=== PATIENT | male | born 1950 | race Asian ===

== ENCOUNTER 2024-05-13 13:20 | Outpatient (RCR) | payer MEDICARE, MEDICAID, SELFPAY ==
--- NOTE | 2024-05-13 13:42 | PTNOTE_ITS ---
PT OP Initial Eval Patient Information Outpatient Physical Therapy Treatment Date: 05/13/24 Visit Reasons: Cerebrovascular accident Medical Diagnosis: I63.89 Treatment Dx #1: Balance impairement Treatment Dx #2: Dec L shoulder ROM Start of Care: 05/13/24 Date of Onset: 01/2024 Smoking Status Smoking Status: Never smoker Initial Assessment Subjective: Pt is 73 yr old male s/p CVA in January with c/o L shoulder weakness, pain and decreased ROM. He has difficulty reaching OH and fully supinating the L hand since the CVA. PLOF: pt had full use of the L shoulder with ADL's and reaching. He also reports dizziness and loss of balance that affects mobility. PMH: CVA, triple bypass 2018, HTN, DM Pt goal: to reach up higher and walk with better balance Objective: L shoulder ArOM: FF: 100 deg ABD: 90 deg ER: 75 deg HBB: to L glute with pain Strength: 4-/5 in all planes SLS: 1-2 seconds Tandem stance: 3 seconds Assessment: Pt presents with decreased L shoulder ROM and strength s/p CVA. And he has poor single leg balance and balance in tandem stance. Pt requires skilled therapy to meet goals and he has fair/good rehab potential. Short Term and Care Home Goals 1. Ind with HEP 2. Improved AROM into all planes to at least 120 deg FF and abduction and ER to 90 deg 3. Pt will reach OH and behind back with <=3/10 R shoulder pain 4. Improved tandem stance balance to at least 10 seconds Treatment Plan 90 day POC ? 1. Manual therapy ? 2. Therex ? 3. Modalities as indicated, moist heat, ice, estim ? Frequency and Duration: 2x a week for 16 visits Certification Dates: 05/13/24 to 08/09/24 Procedure Charges OP PT Eval Mod Complex 30 minutes: Yes
== END 2024-05-14 23:59 | disposition home or self-care (01) ==
LOC: CPTX 13:20
PROVIDERS: PCP Family Medicine; Referring Provider Family Medicine; Visit Provider Family Medicine
DX: I69.354 Hemiplegia and hemiparesis following cerebral infarction affecting left non-dominant side (principal); M25.512 Pain in left shoulder; R26.89 Other abnormalities of gait and mobility; R42 Dizziness and giddiness
CPT/HCPCS: 97162

== ENCOUNTER 2024-05-22 18:44 | Emergency (ER) | payer MEDICARE, MEDICAID, SELFPAY ==
[2024-05-22] VITALS (7 sets, daily range): BP systolic 117–181; BP diastolic 66–99; PULSE 58–81; RESP 18–24; TEMP 36.7–37; O2SAT 95–97; BMI 27.3
--- NOTE | 2024-05-22 18:50 | EKG_ITS ---
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1950 Requested By: Nik Brown Order Number: [id number] Reading MD: Nik Brown Measurements Intervals [place] Rate: 71 P: 27 MN: 112 QRS: -47 QRSD: 157 T: 17 QT: 426 QTc: 465 Interpretive Statements SINUS RHYTHM WITH SHORT MN INTERVAL RIGHT BUNDLE BRANCH BLOCK [120+ ms QRS DURATION, UPRIGHT V1, 40+ ms S IN I/aVL/V4/V5/V6] LEFT ANTERIOR FASCICULAR BLOCK [QRS AXIS <= -45, QR IN I, RS IN II] Compared to ECG 01/30/2024 12:26:28 Short MN interval now present Left anterior fascicular block now present Sinus bradycardia no longer present Left-axis deviation no longer present /store/S0/[id number]/ecg/[id number].pdf
--- NOTE | 2024-05-22 19:57 | PD.EDADULT ---
ED General RME/HPI General Chief complaint: General Adult/Misc Complain Stated complaint: HYPERTENSION Time Seen by Provider: 05/22/24 19:55 Arrival date/time: 05/22/24 18:44 RME / HPI RME / HPI narrative: 73-year-old male patient came in for evaluation regarding elevated blood pressure. At home patient's blood pressure was noted to be above 200 systolic. Also complained of posterior neck pain. Denies any chest pain denies any shortness of breath denies any other complaints patient is taking Coreg and [place] chlorothiazide daily. Related Data Home Medications ?Medication ?Instructions ?Recorded ?Confirmed metformin 850 mg tablet 850 mg PO BID 06/17/17 07/07/20 esomeprazole magnesium 20 mg 40 mg PO QDAY 06/18/17 07/07/20 capsule,delayed release (Nexium) atorvastatin 20 mg tablet 20 mg PO QDAY 06/21/20 07/07/20 carvedilol 3.125 mg tablet 3.125 mg PO BID 06/21/20 07/07/20 loratadine 10 mg tablet 10 mg PO QDAY 06/21/20 07/07/20 tamsulosin 0.4 mg capsule 0.4 mg PO QDAY 06/21/20 07/07/20 losartan 25 mg tablet 25 mg PO QDAY 07/07/20 07/07/20 Previous Rx's ?Medication ?Instructions ?Recorded clopidogrel 75 mg tablet (Plavix) 75 mg PO QDAY #30 tabs 06/18/17 hydrochlorothiazide 12.5 mg tablet 12.5 mg PO QAM #30 tabs 07/24/23 meclizine 25 mg tablet 25 mg PO BID PRN dizziness #10 tabs 01/25/24 scopolamine base 1 mg over 3 days 1 mg topical .72 hours PRN 01/25/24 transdermal patch (Transderm-Scop) dizziness #10 ea hydralazine 25 mg tablet 25 mg PO TID PRN htn #30 tabs 05/22/24 Allergies Allergy/AdvReac Type Severity Reaction Status Date / Time No Known Allergies Allergy Verified 05/22/24 18:47 Review of Systems Review of Systems Narrative Review of Systems: Review of system reviewed and within normal limits except mentioned in HPI ED Exam Narrative Physical exam: VITAL SIGNS: Reviewed. GENERAL APPEARANCE: Alert and interactive, follows commands, no acute distress, HEAD AND FACE: Non-traumatic. ENT: PERRL, pink conjunctivitis, eyelid no trauma, Mucous membrane moist. NECK: Supple, nontender, no nuchal rigidity. CHEST: No tenderness, no crepitus, no paradoxical movement, no retractions. LUNGS: Clear, well ventilated, symmetric, no rales, no wheezing, no ronchi, no stridor, good breath sounds bilaterally. HEART: Regular rate, regular rhythm, no murmur, no gallops. ABDOMEN: Soft, positive bowel sounds, nondistended, no guarding, nontender, no rebound, no masses, RECTAL: Deferred. GENITAL: Deferred. NEUROLOGICAL: Gross motor function intact sensory function intact, Appropriate for age. MUSCULOSKELETAL: low back nontender, full range of motion. EXTREMITIES: Nontender, full range of motion. SKIN: Color pink, dry, no rash, no lacerations, no abrasions, no contusions. LYMPHATICS: Deferred. Course Quality Measures none Orders Category Date Time Status EKG (ED ONLY) *Do not use* NOW Care 05/22/24 18:50 Completed EKG (ED Only) Stat Exams 05/22/24 18:50 Draft CBC [CBC] Stat Lab 05/22/24 20:45 Completed CMP [Comprehensive Metabolic Panel] Stat Lab 05/22/24 20:45 Completed Troponin I Stat Lab 05/22/24 20:45 Completed NIFEdipine [Procardia] Med 05/22/24 19:55 Discontinued 20 mg PO X1 ONE cloNIDine HCL [Catapres] Med 05/22/24 19:59 Discontinued 0.2 mg PO X1 ONE Vital Signs Vital signs: Vital Signs Temperature 98.6 F 05/22/24 19:42 Pulse Rate 78 05/22/24 19:42 Respiratory Rate 18 05/22/24 19:42 Blood Pressure 181/99 H 05/22/24 19:42 Pulse Oximetry (%) 97 05/22/24 19:42 Oxygen Delivery Method Room Air 05/22/24 19:42 [facility] Patient data External records reviewed:: None Clinical information provided by:: none Social determinants that could affect healthcare access:: none Patient has the following chronic illnesses:: Hypertension How is presenting disease/condition affected by chronic disease/condition?: exacerbated by Evaluation data The following diagnostics were reviewed and interpreted by me:: lab results and EKG tracing(s) Lab and/or radiology exams considered but not ordered:: None Interpretation Summary: See results in MDM Medications Medications considered but not ordered:: None Medication administrations:: Medication Administration History Discontinued Medications Clonidine (Clonidine Hcl 0.1 Mg Tablet) 0.2 mg PO X1 ONE Stop: 05/22/24 20:00 Last Admin: 05/22/24 20:03 Dose: 0.2 mg Documented By: Nifedipine (Nifedipine 10 Mg Capsule) 20 mg PO X1 ONE Stop: 05/22/24 19:56 Last Admin: 05/22/24 20:05 Dose: Not Given Documented By: Non-Admin Reason: Cancelled by Provider Clonidine Consultations Consultation(s) initiated? (list below): No Diagnosis Differential Diagnosis ED Complaint MDM: Hypertension hypertensive urgency Most likely diagnosis given after review of the tests above:: Hypertensive urgency Admission Indicated Admission indicated?: not indicated Explain why admission is indicated or not indicated:: Stable Admission Request Was there a request for admission?: No Disposition Plan Disposition Plan: Discharge Discharge Attestation Discharge Attestation: The patient was given an opportunity to ask questions and understood the discharge instructions. Discharge instructions specifically effects, indications for sooner follow up or return to the emergency department, and the expected course of current diagnosis. Patient condition: Stable Medical Decision Making MDM Narrative MDM Narrative: 73-year-old male patient came in for evaluation regarding elevated blood pressure. At home patient's blood pressure was noted to be above 200 systolic. Also complained of posterior neck pain. Denies any chest pain denies any shortness of breath denies any other complaints patient is taking Coreg and [place] chlorothiazide daily. Patient received clonidine 0.2 mg p.o. x 1 EKG showed normal sinus rhythm, ventricular rate of 71 bpm, no ST segment elevation depression noted. Laboratory workup including troponin all came back normal. Prior to discharge patient blood pressure was noted to be 122/66 and patient is denying any complaints Patient appears nontoxic and hemodynamically stable. Patient discharged home and instructed to follow-up with primary care provider in 24 to 48 hours. Instructed to return to the emergency department immediately if worsening of symptoms Differential Diagnosis Differential Diagnosis: Hypertension hypertensive urgency Lab Data 05/22/24 20:45 05/22/24 20:45 Labs: Lab Results 05/22/24 Range/Units 20:45 WBC 7.3 (3.8-10.6) Thou/mm3 RBC 4.90 (4.50-5.90) Miln/mm3 Hgb 13.1 L (13.5-16.0) g/dL Hct 38.4 L (41.0-53.0) % MCV 78 L (80-100) fL MCH 26.7 (25.0-35.0) pg MCHC 34.1 (31.0-37.0) g/dl RDW Std Deviation 37.9 (35.1-43.9) fL Plt Count 228 (140-440) Thou/mm3 Neut % (Auto) 58 (37-80) % Lymph % (Auto) 29 (10-50) % [place] % (Auto) 8 (0-12) % Eos % (Auto) 3 (0-10) % Baso % (Auto) 1 (0-2.5) % Neut # (Auto) 4.3 (1.8-7.7) Thou/mm3 Lymph # (Auto) 2.2 (1.0-4.8) Thou/mm3 [place] # (Auto) 0.6 (0.0-0.8) Thou/mm3 Eos # (Auto) 0.2 (0.0-0.5) Thou/mm3 Baso # (Auto) 0.1 (0.0-0.2) Thou/mm3 Immature Gran # (Auto) 0.03 H (0.00-0.00) Thou/mm3 Absolute Nucleated RBC 0.00 (0.00-0.00) Thou/mm3 Immature Gran % 0 (0-0) % Nucleated RBC % 0 (0) /100 WBC Sodium 138 (136-145) mMol/L Potassium 4.3 (3.4-5.1) mMol/L Chloride 104 (98-107) mMol/L Carbon Dioxide 26.1 (20.0-31.0) mMol/L Anion Gap 8 (7-16) BUN 16 (9-23) mg/dL Creatinine 1.1 (0.6-1.3) mg/dL Estim Creat Clear Calc 62.2 (>60) mL/min eGFR > 60 (60 - ) See Note BUN/Creatinine Ratio 15 (12-20) Ratio Glucose 108 H (74-106) mg/dL Calculated Osmolality 277 (275-295) Calcium 10.5 (8.3-10.6) mg/dL Corrected Calcium 10.5 H (8.5-10.1) mg/dL Total Bilirubin 0.6 (0.3-1.2) mg/dL AST 21 (0-34) U/L ALT 19 (10-49) U/L Alkaline Phosphatase 62 (46-116) U/L Troponin I < 0.020 (0.0-0.045) ng/mL Total Protein 7.7 (5.7-8.2) gm/dL Albumin 4.6 (3.4-4.8) gm/dL Globulin 3.1 (2.3-3.5) gm/dL Albumin/Globulin Ratio 1.5 (1.2-2.2) Discharge Plan Plan Patient Disposition: HOME (Self Care) Disposition Comment: Stable Prescriptions/Referrals Prescriptions/Med Rec: New hydralazine 25 mg tablet 25 mg PO TID PRN (Reason: htn) Qty: 30 0RF Rx Instructions: For systolic above 160 For diastolic above 110 No Action metformin 850 mg Tablet 850 mg PO BID clopidogrel [Plavix] 75 mg Tablet 75 mg PO QDAY Qty: 30 0RF esomeprazole magnesium [Nexium] 20 mg Capsule,Delayed Release(Dr/Ec) 40 mg PO QDAY atorvastatin 20 mg Tablet 20 mg PO QDAY carvedilol 3.125 mg Tablet 3.125 mg PO BID tamsulosin 0.4 mg Capsule 0.4 mg PO QDAY loratadine 10 mg Tablet 10 mg PO QDAY losartan 25 mg Tablet 25 mg PO QDAY hydrochlorothiazide 12.5 mg tablet 12.5 mg PO QAM Qty: 30 0RF meclizine 25 mg tablet 25 mg PO BID PRN (Reason: dizziness) Qty: 10 0RF scopolamine base [Transderm-Scop] 1 mg over 3 days patch 3 day 1 mg topical .72 hours PRN (Reason: dizziness) Qty: 10 0RF Referrals: Art Woody MD [Primary Care Provider] - In 1 week Problem List Clinical Impression: Hypertension Patient/Caregiver Discharge Instructions Discharge Activity: activity as tolerated Education Materials: ED High Blood Pressure ... Additional Instructions: Thank you for the opportunity for serving you today. You are stable for discharged . You are advised to: Follow-up with your PCP in 1 to 2 days Return to ED for worsening of symptoms Increase oral fluids Take medication as prescribed Print Language: Turkish Stand Alone Forms: Maryellen Award Info., Patient Portal Info Letter PA/[employer] MAKER Supervising Physician PA/[employer] MAKER Supervising Physician: MD Joe
[2024-05-22] MEDS: cloNIDine HCL 0.1 MG TABLET 0.2 MG PO (20:03)
[2024-05-22 21:13] LABS: Basophils # (Auto) 0.1 Thou/mm3 (0.0-0.2); Basophils % (Auto) 1 % (0-2.5); Eosinophils # (Auto) 0.2 Thou/mm3 (0.0-0.5); Eosinophils % (Auto) 3 % (0-10); Hematocrit 38.4 % (41.0-53.0); Hemoglobin 13.1 g/dL (13.5-16.0); Immature Granulocytes % (Auto) 0 % (0-0); Immature Granulocytes Auto 0.03 Thou/mm3 (0.00-0.00); Lymphocytes # (Auto) 2.2 Thou/mm3 (1.0-4.8); Lymphocytes % (Auto) 29 % (10-50); Mean Corpuscular HGB Conc 34.1 g/dl (31.0-37.0); Mean Corpuscular Hemoglobin 26.7 pg (25.0-35.0); Mean Corpuscular Volume 78 fL (80-100); Monocytes # (Auto) 0.6 Thou/mm3 (0.0-0.8); Monocytes % (Auto) 8 % (0-12); Neutrophils # (Auto) 4.3 Thou/mm3 (1.8-7.7); Neutrophils % (Auto) 58 % (37-80); Nucleated Red Blood Cell % 0 /100 WBC (0); Platelet Count 228 Thou/mm3 (140-440); RDW Standard Deviation 37.9 fL (35.1-43.9); White Blood Count 7.3 Thou/mm3 (3.8-10.6)
[2024-05-22 21:28] LABS: Alanine Aminotransferase 19 U/L (10-49); Albumin, Serum 4.6 gm/dL (3.4-4.8); Albumin/Globulin Ratio 1.5 (1.2-2.2); Alkaline Phosphatase 62 U/L (46-116); Anion Gap 8 (7-16); Aspartate Amino Transferase 21 U/L (0-34); BUN/Creatinine Ratio 15 Ratio (12-20); Bilirubin,Total 0.6 mg/dL (0.3-1.2); Blood Urea Nitrogen 16 mg/dL (9-23); Calcium 10.5 mg/dL (8.3-10.6); Calcium (Corrected) 10.5 mg/dL (8.5-10.1); Carbon Dioxide 26.1 mMol/L (20.0-31.0); Chloride 104 mMol/L (98-107); Creatinine (Component) 1.1 mg/dL (0.6-1.3); Estimated Creatinine Clearance 62.2 mL/min (>60); Globulin 3.1 gm/dL (2.3-3.5); Glucose 108 mg/dL (74-106); Osmolality,Calculated 277 (275-295); Potassium 4.3 mMol/L (3.4-5.1); Sodium 138 mMol/L (136-145); Total Protein 7.7 gm/dL (5.7-8.2); Troponin I < 0.020 ng/mL (0.0-0.045); eGFR > 60 See Note
== END 2024-05-22 22:19 | disposition home or self-care (01) ==
PROVIDERS: Nurse Practitioner Family; Emergency Provider Emergency Medicine; PCP Family Medicine
DX: I10 Essential (primary) hypertension (principal)
CPT/HCPCS: 36415; 80053; 84484; 85025; 93005; 99283; A9270

== ENCOUNTER 2024-06-11 14:00 | Outpatient (RCR) | payer MEDICARE, MEDICAID, SELFPAY ==
--- NOTE | 2024-05-25 14:57 | PT.ODAYNRPT ---
PT Outpatient Daily Note OP Daily Note Outpatient Physical Therapy Treatment Date: 05/25/24 Visit Reasons: Cerebrovascular accident Subjective: Same as time of eval Objective: See F/S for therex Assessment: Some pain with AAROM into L shoulder abduction but improved AAROM today Plan: Continue per POC Length of Time (minutes) of Treatment: 30 Minutes Procedure Charges Therapeutic Exercise 30 minutes: Yes
--- NOTE | 2024-06-01 14:24 | PT.ODAYNRPT ---
PT Outpatient Daily Note OP Daily Note Outpatient Physical Therapy Treatment Date: 06/01/24 Visit Reasons: Cerebrovascular accident Subjective: The L shoulder isn't hurting much today Objective: See F/S for therex Assessment: Some pain with AAROM into L shoulder abduction but improved AAROM today Plan: Continue per POC Length of Time (minutes) of Treatment: 30 Minutes Procedure Charges Therapeutic Exercise 30 minutes: Yes
--- NOTE | 2024-06-04 15:07 | PT.ODAYNRPT ---
PT Outpatient Daily Note OP Daily Note Outpatient Physical Therapy Treatment Date: 06/04/24 Visit Reasons: Cerebrovascular accident Subjective: Pt reports noticing progress with shoulder mobility. Objective: Please see flow sheet for ther ex list. Assessment: Interventions completed with short rest breaks in between, pt shared he suffers from vertigo so he gets episodes of dizziness. Plan: Continue with POc. Length of Time (minutes) of Treatment: 30 Minutes Procedure Charges Therapeutic Exercise 30 minutes: Yes
--- NOTE | 2024-06-09 14:11 | PT.ODAYNRPT ---
PT Outpatient Daily Note OP Daily Note Outpatient Physical Therapy Treatment Date: 06/09/24 Visit Reasons: Cerebrovascular accident Subjective: The L shoulder isn't hurting much today Objective: See F/S for therex Assessment: Some pain with AAROM into L shoulder abduction but improved AAROM today Plan: Continue per POC Length of Time (minutes) of Treatment: 30 Minutes Procedure Charges Therapeutic Exercise 30 minutes: Yes
--- NOTE | 2024-06-11 14:40 | PT.ODAYNRPT ---
PT Outpatient Daily Note OP Daily Note Outpatient Physical Therapy Treatment Date: 06/11/24 Visit Reasons: Cerebrovascular accident Subjective: No new complaints. Objective: Please see flow sheet for ther ex list. Assessment: Pt demonstrates forward head with B UE ther ex, verbal cues and reminders to correct. Plan: Continue with POC. Length of Time (minutes) of Treatment: 30 Minutes Procedure Charges Therapeutic Exercise 30 minutes: Yes
== END 2024-06-11 23:59 | disposition home or self-care (01) ==
LOC: CPTX 14:00
PROVIDERS: PCP Family Medicine; Referring Provider Family Medicine; Visit Provider Family Medicine
DX: I69.354 Hemiplegia and hemiparesis following cerebral infarction affecting left non-dominant side (principal); M25.512 Pain in left shoulder; R26.89 Other abnormalities of gait and mobility; R42 Dizziness and giddiness
CPT/HCPCS: 97110

== ENCOUNTER → 2024-07-05 | Outpatient (CLI) | payer MEDICARE, MEDICAID, SELFPAY ==
--- NOTE | 2024-07-05 16:00 | XR_ITS ---
Examination: CT chest, without intravenous contrast. Sagittal and coronal 2-D reconstructions. Exam date and time: July 05, 2024 1604 hours INDICATIONS: T millimeter nodule right upper lobe on CT head and shows study February 09, 2024 CTDI:vol (mGy) 11 DLP: (mGycm) 396 Technique: Multiple 3.0 mm axial sections of the chest to been obtained. Bone and lung density settings are obtained. Sagittal and coronal 2-D reconstructions have been obtained. Low dose protocols were performed. One or more of the following dose reduction techniques were used; automated exposure control, adjustment of the mA and/or KV according to patient size, use of iterative reconstruction technique. Findings: AP dimension ascending thoracic aorta 3.9 cm Pulmonary artery segments are not enlarged No paratracheal tracheobronchial or bronchopulmonary adenopathy 9 mm pulmonary nodule right upper lobe axial image 23 No pneumonia or pulmonary edema No visualized liver or splenic lesion No pancreatic mass Kidneys partially visualized no hydronephrosis IMPRESSION: 9 mm pulmonary nodule right upper lobe, recommend continued 3-6 month follow-up CT chest without contrast
== END | disposition home or self-care (01) ==
PROVIDERS: PCP Family Medicine; Referring Provider Family Medicine; Visit Provider Family Medicine
DX: R91.1 Solitary pulmonary nodule (principal)
CPT/HCPCS: 71250

== ENCOUNTER 2024-07-12 10:30 | Outpatient (RCR) | payer MEDICARE, MEDICAID, SELFPAY ==
--- NOTE | 2024-06-17 11:59 | PT.ODS1RPT ---
PT OP Progress/Discharge Note Date of Service: 06/17/24 Progress Note/DC Note Progress Note/Discharge Note: Progress Note Patient Information Visit Reasons: Cerebrovascular accident Service Continue Service or Discharge: Continue Service Status Subjective: Improved L shoulder ROM since starting therapy but it still hurts to reach OH and limited with full supination of L wrist. Objective: L shoulder AROM: FF: 107 deg Abd: 95 deg ER: 80 deg Assessment: Pt has attended the eval and 6 Rx sessions with slow progress with ROM goals due to pain. Pt would benefit from continued therapy to meet goals. Plan: Continue with visits up to 16. Procedure Charges Therapeutic Exercise 30 minutes: Yes
--- NOTE | 2024-06-24 13:06 | PTNOTE_ITS ---
PT Outpatient Daily Note OP Daily Note Outpatient Physical Therapy Treatment Date: 06/24/24 Visit Reasons: Cerebrovascular accident Subjective: Pt reports shoulder pain continues to be present. Pt mentioned that he has not been to PT for a week but while he is off he does exercises at home, pt uses dumbbell weight for exercises. Pt shared that he notices a bumb on his arm near bicep and it is sore and painful. Pt has a follow up with MD on the first week of July. Pt Objective: Please see flow sheet for ther ex list. Assessment: Pt presents in clinic with improved ROm but continues to have pain. Pt recommended to avoid use of dumbbell weight at home for now due to new complaint of pain and soreness in bicep region. Plan: Continue with POC. Length of Time (minutes) of Treatment: 30 Minutes STRATEGIC PLANNING MANAGER Service Modifier Method I: Divide the number of min of care provided by the STRATEGIC PLANNING MANAGER/ROXANNE by the total min of care provided then multiply by 100. If greater than 11 percent modifier is required. Method II: Divide the total time of care provided to patient by 10 (round to the nearest whole number) and add 1 min. to set the minimum time requirement. If treatment total was 60 min., then 10% of 6 min PT CQ modifier applied: CQ Modifier applied Procedure Charges Therapeutic Exercise 30 minutes: Yes
--- NOTE | 2024-07-01 13:12 | PT.ODS1RPT ---
PT OP Progress/Discharge Note Date of Service: 07/01/24 Progress Note/DC Note Progress Note/Discharge Note: Progress Note Patient Information Visit Reasons: Cerebrovascular accident Service Continue Service or Discharge: Continue Service Status Subjective: Improved L shoulder ROM since starting therapy but it still hurts to reach OH and limited with full supination of L wrist. Objective: L shoulder AROM: FF: 107 deg Abd: 95 deg ER: 80 deg Assessment: Pt has attended the eval and 6 Rx sessions with slow progress with ROM goals due to pain. Pt would benefit from continued therapy to meet goals. Plan: Continue with visits up to 16.
--- NOTE | 2024-07-01 13:18 | PT.ODAYNRPT ---
PT Outpatient Daily Note OP Daily Note Outpatient Physical Therapy Treatment Date: 07/01/24 Visit Reasons: Cerebrovascular accident Subjective: The L shoulder isn't hurting much today Objective: See F/S for therex Assessment: Some pain with AAROM into L shoulder abduction but improved AAROM today Plan: Continue per POC Length of Time (minutes) of Treatment: 30 Minutes Procedure Charges Therapeutic Exercise 30 minutes: Yes
--- NOTE | 2024-07-12 11:38 | PT.ODAYNRPT ---
PT Outpatient Daily Note OP Daily Note Outpatient Physical Therapy Treatment Date: 07/12/24 Visit Reasons: Cerebrovascular accident Subjective: The L shoulder isn't hurting much today but it gets tired with exercise. Objective: See F/S for therex Assessment: Some pain with AAROM into L shoulder abduction but improved AAROM today into FF with 2 lb dumbbell in supine Plan: Continue per POC Length of Time (minutes) of Treatment: 30 Minutes Procedure Charges Therapeutic Exercise 30 minutes: Yes
== END 2024-07-12 23:59 | disposition home or self-care (01) ==
LOC: CPTX 10:30
PROVIDERS: PCP Family Medicine; Referring Provider Family Medicine; Visit Provider Family Medicine
DX: I69.354 Hemiplegia and hemiparesis following cerebral infarction affecting left non-dominant side (principal); R26.89 Other abnormalities of gait and mobility; R42 Dizziness and giddiness; I10 Essential (primary) hypertension; E11.9 Type 2 diabetes mellitus without complications
CPT/HCPCS: 97110

== ENCOUNTER 2024-08-04 11:30 | Outpatient (RCR) | payer MEDICARE, SELFPAY ==
--- NOTE | 2024-07-20 13:15 | PT.ODAYNRPT ---
PT Outpatient Daily Note OP Daily Note Outpatient Physical Therapy Treatment Date: 07/20/24 Visit Reasons: Cerebrovascular accident Subjective: Pt reports shoulder is clicking, popping, grinding and still has pain. Objective: Please see flow sheet for ther ex list. Assessment: Pt c/o pain and tightness on posterior shoulder, pt instructed on posterior capsule stretch verbal and tactile cues to perform with good technique. Plan: Continue with poC. Length of Time (minutes) of Treatment: 30 Minutes Procedure Charges Therapeutic Exercise 30 minutes: Yes
--- NOTE | 2024-07-27 13:15 | PT.ODAYNRPT ---
PT Outpatient Daily Note OP Daily Note Outpatient Physical Therapy Treatment Date: 07/27/24 Visit Reasons: Cerebrovascular accident Subjective: Pt reports he continues to be compliant with HEP, and stays pretty active. Pt c/o feeling clicking and popping near shoulder and shoulder blade. Objective: Please see flow sheet for ther ex list. Assessment: Progressing AAROM interventions per pt tolerance. Pt demonstrates poor endurance with strengthening interventions, requires frequent rest breaks in between reps. Plan: Continue with POC. Length of Time (minutes) of Treatment: 30 Minutes Procedure Charges Therapeutic Exercise 30 minutes: Yes
--- NOTE | 2024-08-04 13:12 | PT.ODAYNRPT ---
PT Outpatient Daily Note OP Daily Note Outpatient Physical Therapy Treatment Date: 08/04/24 Visit Reasons: Cerebrovascular accident Subjective: Pt reports he continues to perform HEP. Objective: Please see flow sheet for ther ex list. Assessment: Pt ROM slowly progressing. Pt educated on updated HEP adding horizontal abduction exercise and shoulder extension AAROM. Plan: Continue with POC. Length of Time (minutes) of Treatment: 30 Minutes HEAT TREAT TECHNICIAN Service Modifier Method I: Divide the number of min of care provided by the HEAT TREAT TECHNICIAN/CLAY PIGEON SETTER by the total min of care provided then multiply by 100. If greater than 11 percent modifier is required. Method II: Divide the total time of care provided to patient by 10 (round to the nearest whole number) and add 1 min. to set the minimum time requirement. If treatment total was 60 min., then 10% of 6 min PT CQ modifier applied: CQ Modifier applied Procedure Charges Therapeutic Exercise 30 minutes: Yes
== END 2024-08-11 23:59 | disposition home or self-care (01) ==
LOC: CPTX 11:30
PROVIDERS: PCP Family Medicine; Referring Provider Family Medicine; Visit Provider Family Medicine
DX: I69.354 Hemiplegia and hemiparesis following cerebral infarction affecting left non-dominant side (principal); R42 Dizziness and giddiness; R26.89 Other abnormalities of gait and mobility; I10 Essential (primary) hypertension; E11.9 Type 2 diabetes mellitus without complications
CPT/HCPCS: 97110

== ENCOUNTER 2024-08-18 11:18 | Outpatient (RCR) | payer MEDICARE, SELFPAY | END 2024-09-11 23:59 | disposition home or self-care (01) | LOC: CPTX 11:18 | PROVIDERS: PCP Family Medicine; Referring Provider Family Medicine; Visit Provider Family Medicine | DX: Z53.8 Procedure and treatment not carried out for other reasons (principal) ==